=== PATIENT | male | born 1980 | race Asian ===

== ENCOUNTER 2019-08-25 15:58 | Emergency (ER) | payer BC ==
[~2019-08-25] VITALS: Ht 170.2 cm; Wt 61.0 kg
[2019-08-25 16:06] VITALS: BP 142/98
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
[2019-08-25] MEDS ORDERED: ondansetron 4mg rapidly disintigrating tab PO ONE (17:50)
[2019-08-25] MEDS ORDERED: HYDROcodone/acetaminophen 5mg/325mg tablet PO ONE (17:50)
== END 2019-08-25 18:00 | disposition home or self-care (01) ==
LOC: ER 15:59
DX: S83.92XA Sprain of unspecified site of left knee, initial encounter (principal); Y04.2XXA Assault by strike against or bumped into by another person, initial encounter; Y93.89 Activity, other specified; Y92.89 Other specified places as the place of occurrence of the external cause; Y99.8 Other external cause status
CPT/HCPCS: 73564; 99283

== ENCOUNTER 2023-06-26 00:31 | Emergency (ER) | payer BC ==
[~2023-06-26] VITALS: Ht 170.2 cm; Wt 59.1 kg
[~2023-06-26 00:31] MED LIST: GABA300C PO; ONDA4TAB6 PO
[2023-06-26 00:42] VITALS: RESP 18; TEMP 98.4; O2SAT 99
[2023-06-26] MEDS ORDERED: lisinopril 10 MG tablet PO ONE (00:55)
[2023-06-26] MEDS ORDERED: chlordiazePOXIDE 25mg capsule PO ONE (01:35)
[2023-06-26 01:48] VITALS: BP 150/107; PULSE 111
== END 2023-06-26 01:51 ==
LOC: ER 00:32
DX: I10 Essential (primary) hypertension (principal); R51.9 Headache, unspecified; F10.10 Alcohol abuse, uncomplicated; Z79.899 Other long term (current) drug therapy; Y90.9 Presence of alcohol in blood, level not specified
CPT/HCPCS: 93005; 99283

== ENCOUNTER 2024-08-02 09:46 | Emergency (ER) | payer BC, MEDICAID ==
[~2024-08-02] VITALS: Ht 167.6 cm; Wt 76.4 kg
[2024-08-02 09:52] VITALS: BP 114/77; PULSE 72; TEMP 97.5; O2SAT 100
[2024-08-02] MEDS ORDERED: GUAI120015 PO (11:06)
[2024-08-02] MEDS ORDERED: NAPR-56 PO (11:06)
[2024-08-02 11:35] VITALS: RESP 18
== END 2024-08-02 11:37 | disposition home or self-care (01) ==
LOC: ER 09:47
DX: S93.402A Sprain of unspecified ligament of left ankle, initial encounter (principal); R05.2 Subacute cough; X50.1XXA Overexertion from prolonged static or awkward postures, initial encounter; Y93.89 Activity, other specified; Y92.89 Other specified places as the place of occurrence of the external cause; Y99.8 Other external cause status
CPT/HCPCS: 73610; 99283; A6449